=== PATIENT | female | born 1985 | race Caucasian/White ===

== ENCOUNTER → 2019-07-02 | Outpatient (CLI) | payer BC ==
--- NOTE | 2019-07-02 13:47 | US ---
EXAMINATION TYPE: US transvaginal DATE OF EXAM: 07/02/2019 COMPARISON: NONE CLINICAL HISTORY: N97.9 Female infertility, unspecified. Infertility, follicle study TECHNIQUE: Transvaginal (TV). Transvaginal sonographic images of the pelvis were acquired. Date of LMP: 06/25/2019 EXAM MEASUREMENTS: Uterus: 7.3 x 3.5 x 5.1 cm Endometrial Stripe: 0.4 cm Right Ovary: 2.1 x 1.8 x 1.1 cm Left Ovary: 2.6 x 1.8 x 1.0 cm 1. Uterus: Anteverted Heterogeneous with probable fibroid anterior fundus= 1.3 x 1.0 x 1.1 cm 2. Endometrium: Trilaminar in appearance 3. Right Ovary: Three follicles visualized with largest measured= 5 x 4 x 3mm 4. Left Ovary: Five follicles visualized with largest measured= 3 x 3 x 3mm 5. Bilateral Adnexa: wnl 6. Posterior cul-de-sac: wnl IMPRESSION: 1. Trilaminar appearance of the nonthickened endometrium measuring 4 mm. 3 follicles are seen in the right ovary with the largest measuring 5 mm and 5 follicles seen in the left ovary with the largest m easuring 3 mm. 2. Intramural 1.3 cm anterior fundal myometrial lesion, most commonly a leiomyoma.
== END | disposition home or self-care (01) ==
LOC: RADUSWWP 10:17
PROVIDERS: ATTEND Family Medicine
DX: N85.9 Noninflammatory disorder of uterus, unspecified (principal); N97.9 Female infertility, unspecified
CPT/HCPCS: 76830

== ENCOUNTER → 2023-11-05 | Outpatient (CLI) | payer OTHER | END | disposition home or self-care (01) | LOC: LABWHC1 12:36 | PROVIDERS: ATTEND Psychiatry & Neurology Neurology | DX: G12.21 Amyotrophic lateral sclerosis (principal) | CPT/HCPCS: 36415; 82728 ==